=== PATIENT | male | born 1985 | race African-American/Black ===

== ENCOUNTER 2016-09-17 11:19 | Emergency (ER) | payer MEDICAID ==
[~2016-09-17] VITALS: Ht 188 cm; Wt 79.0 kg
[2016-09-17 11:29] VITALS: BP 117/63
[2016-09-17] MEDS ORDERED: CEFTRIAXONE SODIUM 250 MG/VIAL IM ONE (15:15)
[2016-09-17] MEDS ORDERED: AZITHROMYCIN 500 MG TABLET PO SCH (15:15)
== END 2016-09-17 18:30 | disposition home or self-care (01) ==
LOC: ER 18:23
DX: R30.0 Dysuria (principal); R36.9 Urethral discharge, unspecified; F12.10 Cannabis abuse, uncomplicated
CPT/HCPCS: 96372; 99283; J0696

== ENCOUNTER 2017-01-25 18:13 | Emergency (ER) | payer MEDICAID ==
[~2017-01-25] VITALS: Ht 188 cm; Wt 80.0 kg
[2017-01-25 20:52] LABS: CLARITY URINE CLEAR (CLEAR); COLOR URINE YELLOW (YELLOW); GLUCOSE URINE NEGATIVE (NEGATIVE); KETONES URINE NEGATIVE (NEGATIVE); LEUKOCYTE ESTERASE URINE NEGATIVE (NEGATIVE); NITRITE URINE NEGATIVE (NEGATIVE); OCCULT BLOOD URINE NEGATIVE (NEGATIVE); PH URINE 8.5 (4.5-8.0); PROTEIN URINE NEGATIVE (NEGATIVE); SPECIFIC GRAVITY URINE 1.016 (1.005-1.030)
[2017-01-25] MEDS ORDERED: AZITHROMYCIN 500 MG TABLET PO ONE (23:45)
[2017-01-25] MEDS ORDERED: LIDOCAINE HCL 1% 20ML VIAL (Pyxis) INJ INFIL ONE (23:45)
[2017-01-25] MEDS ORDERED: CEFTRIAXONE SODIUM 250 MG/VIAL IM ONE (23:45)
[2017-01-26 00:19] VITALS: BP 102/55
[2017-01-30 15:07] LABS: CHLAMYDIA TRACHOMATIS NAA Negative (Negative); NEISSERIA GONORRHOEAE NAA Negative (Negative)
== END 2017-01-26 00:27 | disposition home or self-care (01) ==
LOC: ER 18:13
DX: R30.0 Dysuria (principal); F12.10 Cannabis abuse, uncomplicated; Z98.890 Other specified postprocedural states
CPT/HCPCS: 81003; 87491; 87591; 96372; 99284; J0696; J3490; Z7610

== ENCOUNTER 2018-03-15 16:47 | Emergency (ER) | payer BC, MEDICAID ==
[~2018-03-15] VITALS: Ht 188 cm; Wt 81.8 kg
[2018-03-15 20:08] LABS: CLARITY URINE CLEAR (CLEAR); COLOR URINE DARK YELLOW (YELLOW); KETONES URINE TRACE (NEGATIVE); LEUKOCYTE ESTERASE URINE NEGATIVE (NEGATIVE); NITRITE URINE NEGATIVE (NEGATIVE); OCCULT BLOOD URINE NEGATIVE (NEGATIVE); PH URINE 5.5 (4.5-8.0); PROTEIN URINE TRACE (NEGATIVE); SPECIFIC GRAVITY URINE 1.042 (1.005-1.030)
[2018-03-15] MEDS ORDERED: AZITHROMYCIN 500 MG TABLET PO ONE (22:15)
[2018-03-15] MEDS ORDERED: CEFTRIAXONE SODIUM 250 MG/VIAL IM ONE (22:15)
[2018-03-15 23:01] VITALS: BP 110/70
== END 2018-03-16 00:04 | disposition home or self-care (01) ==
LOC: ER 16:47
DX: N34.2 Other urethritis (principal); A64 Unspecified sexually transmitted disease; F12.10 Cannabis abuse, uncomplicated; Z98.890 Other specified postprocedural states
CPT/HCPCS: 81003; 87591; 96372; 99283; J0696; Z7610

== ENCOUNTER 2018-10-13 18:09 | Emergency (ER) | payer BC, MEDICAID ==
[~2018-10-13] VITALS: Ht 188 cm; Wt 77.0 kg
[2018-10-13 21:12] LABS: CLARITY URINE CLOUDY (CLEAR); COLOR URINE DARK YELLOW (YELLOW); KETONES URINE 1+ (NEGATIVE); LEUKOCYTE ESTERASE URINE TRACE (NEGATIVE); NITRITE URINE NEGATIVE (NEGATIVE); OCCULT BLOOD URINE NEGATIVE (NEGATIVE); PH URINE 5.5 (4.5-8.0); PROTEIN URINE TRACE (NEGATIVE); SPECIFIC GRAVITY URINE 1.037 (1.005-1.030)
[2018-10-13 21:57] VITALS: BP 112/71
== END 2018-10-13 21:59 | disposition home or self-care (01) ==
LOC: ER 19:14
DX: J06.9 Acute upper respiratory infection, unspecified (principal); K52.9 Noninfective gastroenteritis and colitis, unspecified
CPT/HCPCS: 71045; 81003; 87070; 87430; 99284

== ENCOUNTER 2023-07-26 18:18 | Emergency (ER) | payer BC ==
[~2023-07-26] VITALS: Ht 190.5 cm; Wt 82.0 kg
[2023-07-26 18:57] VITALS: TEMP 98.4; O2SAT 99
[2023-07-26 19:21] LABS: CLARITY URINE CLOUDY (CLEAR); COLOR URINE DARK YELLOW (YELLOW); GLUCOSE URINE NEGATIVE (NEGATIVE); KETONES URINE 1+ (NEGATIVE); LEUKOCYTE ESTERASE URINE TRACE (NEGATIVE); NITRITE URINE NEGATIVE (NEGATIVE); OCCULT BLOOD URINE NEGATIVE (NEGATIVE); PH URINE 5.5 (4.5-8.0); PROTEIN URINE 1+ (NEGATIVE); SPECIFIC GRAVITY URINE 1.038 (1.005-1.030)
[2023-07-26 19:31] LABS: BACTERIA URINE NONE SEEN; RBC URINE 0-2 /hpf (0-2); SQUAMOUS EPITHELIAL CELL URINE 1+ /lpf (RARE/1+)
[2023-07-26] MEDS: CEFTRIAXONE SODIUM 500MG VIAL IM ONE (20:45)
[2023-07-26] MEDS: DOXYCYCLINE HYCLATE 100MG CAPSULE PO ONE (20:45)
[2023-07-26] MEDS ORDERED: DOXY-456 MT (22:39)
[2023-07-26 22:50] VITALS: BP 111/64; PULSE 56; RESP 18
[2023-07-26] MEDS: CEFTRIAXONE SODIUM 500MG VIAL IM NR (22:55)
[2023-07-26] MEDS: DOXYCYCLINE HYCLATE 100MG CAPSULE PO NR (22:55)
== END 2023-07-26 22:55 | disposition home or self-care (01) ==
LOC: ER 18:18
DX: R30.0 Dysuria (principal); I10 Essential (primary) hypertension; Z98.890 Other specified postprocedural states
CPT/HCPCS: 99283; 81003; 96372; J0696